=== PATIENT | female | born 1970 | race Caucasian/White ===

== ENCOUNTER → 2017-07-14 | Outpatient (CLI) | payer BC, SELFPAY | PROVIDERS: Visit Provider Internal Medicine Cardiovascular Disease | DX: G47.10 Hypersomnia, unspecified (principal); G47.09 Other insomnia; I10 Essential (primary) hypertension | CPT/HCPCS: 95806 ==

== ENCOUNTER → 2018-07-28 06:17 | Outpatient (CLI) | payer OTHER, SELFPAY ==
--- NOTE | 2018-07-28 06:23 | NM_ITS ---
History and Indications: Hypertension, family history, chest pain, shortness of breath and fatigue Procedure: Patient received a 0.4 mg of intravenous Lexiscan, resting heart rate was 64 bpm resting blood pressure 116/72. With Lexiscan maximum heart rate achieved was 100 bpm, which is less than 85% maximum predicted heart rate and a blood pressure was 97/57. With Lexiscan patient complained of shortness of breath, and chest discomfort Electrocardiogram: Resting electrocardiogram showed the sinus rhythm inferior infarct age indeterminate, nonspecific ST-T changes, with Lexiscan there is less than 1.[address] segment depression noted from the baseline EKG. The EKG portion of the Lexiscan Myoview is nondiagnostic. Cardiac stress and resting SPECT images: Cardiac stress and resting SPECT images were obtained using technetium 99 Myoview 31.3 mCi stress and 10.8 mCi at rest. Gated SPECT further analysis of segmental wall motion and calculation of the ejection fraction also done. Cardiac stress and resting SPECT images show uniform myocardial activity without segmental perfusion abnormality, computer derived ejection fraction is over 65% with no regional wall motion abnormality, right ventricle is normal size and contractility. Conclusion: 1. The EKG portion of the Lexiscan Myoview is nondiagnostic. 2. No scintigraphic evidence of reversible ischemia seen, computer derived ejection fraction is over 65% with no regional wall motion abnormality, right ventricle is normal size and contractility. 3. Normal Lexiscan Myoview study.
--- NOTE | 2018-07-28 09:03 | HMH.ITSHM ---
Current Home Medications as stated by this patient Rosa Olivarez or underwriting service representative. []asa prednisone losartan montelukast sumatriptan ondansetron famotidine cyclobenzaprine bisprolol hydroxychloroquine
== END ==
PROVIDERS: Visit Provider Internal Medicine
DX: R07.9 Chest pain, unspecified (principal); I10 Essential (primary) hypertension; I51.9 Heart disease, unspecified; G47.9 Sleep disorder, unspecified; R06.09 Other forms of dyspnea; R53.83 Other fatigue; R94.31 Abnormal electrocardiogram [ECG] [EKG]; Z99.89 Dependence on other enabling machines and devices
CPT/HCPCS: 78452; 93017; A9502; J2785

== ENCOUNTER → 2019-03-06 10:43 | Outpatient (CLI) | payer OTHER, SELFPAY ==
--- NOTE | 2019-03-06 10:33 | CA_ITS ---
APPROVED REPORT EXAM: Comprehensive 2D, Doppler, and color-flow Echocardiogram Coat Tailor: ONEIDA Ht: 5 ft 2 in Wt: 170lbs BSA: 1.78 BP: 136/85 mmHg Indications: SOB Left Ventricle Left atrium is normal size, left ventricle is normal size, there is no concentric left ventricular hypertrophy, visually estimated ejection fraction of 55% with no regional wall motion abnormality. Diastolic parameters are within normal range. Right Ventricle Right atrium and right ventricular normal size and contractility. Aortic Valve Aortic valve is minimally thickened and fibrosed. There is no aortic stenosis or aortic insufficiency. Mitral Valve Mitral valve leaflets are minimally thickened, there is no mitral stenosis, there is mild mitral regurgitation. Tricuspid Valve Cuspid valve is grossly normal, there is mild tricuspid regurgitation. Calculated right ventricular systolic pressure is 36 mmHg. Pulmonic Valve Pulmonic valve is poorly visualized. Great Vessels Aortic root is normal size. Pericardium No significant pericardial effusion noted. 2D Dimensions LVOT 1.70 cm (M/F) 1.5-2.5 M-Mode Dimensions RVDd 2.30 cm (0.9-2.6) LA Diam 3.50 cm (1.9-4.0) LVDd 5.00 cm (3.5-5.7) Ao Diam 3.10 cm (2.0-3.7) LVDs 3.20 cm (3.5-5.7) AV Cusp 2.30 cm (1.5-2.6) IVSd 1.00 cm (0.6-1.1) PWd 0.70 cm (0.6-1.1) EF (Teich) 65.30% FS 36.00% EDV (Teich) 118.00 mL ESV (Teich) 41.00 mL LV Diastology E/A Ratio 1.20 MED E' 6.53 (< 7 cm/sec) E'/MED E' Ratio 12.50 (>14) LAT E' 11.40 (<10 cm/sec) E/LAT E' Ratio 7.20 (>14) Aortic Valve AoV Peak Filiberto. 149.00 (50-130 cm/s) AO Peak GR. 9.00 mmHg Mitral Valve MV E Max Filiberto. 81.90 (40-130 cm/s) MV A Velocity 68.10 (40-130 cm/s) E/A Ratio 1.20 Pulmonary Valve MA End VMAX 84.80 cm/s PA Accel Time 176.00 (>120 msec) Tricuspid Valve TR P. Velocity 225.00 cm/s RAP Estimate 10.00 mmHg RVSP 30.00 mmHg Conclusion 1. Normal left ventricular size, preserved left ventricular systolic function, visually estimated ejection fraction of 55% with no regional wall motion abnormality. Diastolic parameters are within normal range. 2. Mild mitral and tricuspid regurgitation, calculated right ventricular systolic pressure is 36 mmHg. 3. No significant pericardial effusion noted. Electronically signed by : Christiano Garcia, 03/10/2019 14:39:57
== END ==
PROVIDERS: PCP Internal Medicine Cardiovascular Disease; Visit Provider Internal Medicine
DX: R06.02 Shortness of breath (principal)
CPT/HCPCS: 93306

== ENCOUNTER 2020-04-03 15:43 | Emergency (ER) | payer BC, SELFPAY ==
--- NOTE | 2020-04-03 15:43 | ECG_ITS ---
APPROVED REPORT Exam: Resting ECG HR:97 bpm ECG Measurements Heart Rate 97 AXES DE 154 P 51 QRSd 92 QRS 34 QT 356 T 22 QTc 452 <Conclusion> Normal sinus rhythm Nonspecific T wave abnormality Abnormal ECG Electronically signed by : Kwame Rosas, 04/07/2020 15:06:48
[2020-04-03 15:51] VITALS: BP 145/93; PULSE 95; RESP 18; TEMP 36.8; O2SAT 99; BMI 32.3
--- NOTE | 2020-04-03 15:58 | XR_ITS ---
PROCEDURE: XR CHEST 2V CLINICAL HISTORY: chest pain COMPARISON: No exams were available for comparison FINDINGS: The cardiomediastinal silhouette and pulmonary vascularity are within normal limits. The lungs are clear without infiltrates, suspicious nodules, or pleural effusions. No acute bony abnormalities. IMPRESSION: No acute findings. Dictated by: Jose Luis Mackenzie MD 04/03/2020 17:19 Jose Luis Mackenzie MD in [facility] 04/03/2020 17:19
--- NOTE | 2020-04-03 15:58 | PC.NURSE ---
notified rad of chest xray order, spoke with carlo
[2020-04-03 16:08] LABS: Basophils % 0.6 % (0.1-2.0); Eosinophils # 0.1 K/mm3 (0.0-0.4); Eosinophils % 0.9 % (0.1-12.0); Hematocrit 41.5 % (37.0-47.0); Hemoglobin 14.3 g/dL (12.2-16.2); Lymphocytes # 2.2 K/mm3 (0.7-4.5); Lymphocytes % 35.1 % (10-50); Mean Corpuscular HGB Conc 34.4 g/dL (31.8-35.4); Mean Corpuscular Hemoglobin 27.6 pg (27.0-31.2); Mean Corpuscular Volume 80.1 fl (81-99); Mean Platelet Volume 7.2 fl (7.4-10.4); Monocytes # 0.3 K/mm3 (0.1-1.0); Neutrophils # 3.7 K/mm3 (1.8-7.8); Neutrophils % 58.4 % (37.0-80.0); Platelet Count 289 K/mm3 (142-424); Red Blood Count 5.18 M/mm3 (4.20-5.40); Red Cell Distribution Width 14.7 % (11.5-17.5); White Blood Count 6.4 K/mm3 (4.8-10.8)
[2020-04-03 16:11] LABS: Chloride 100 mmol/L (98-107); Potassium 3.2 mmoL/L (3.5-5.1); Sodium 143 mmol/L (136-145)
[2020-04-03 16:14] LABS: Blood Urea Nitrogen 7 mg/dl (7-17); Creatinine Clearance Estimated 126 mL/min (50-200); Estimated Glomerular Filt Rate 90 ml/min (>60); GFR (African American) 109 ML/MIN (>60)
[2020-04-03 16:15] LABS: Anion Gap 17.2 mEq/L (5-15); Carbon Dioxide 29 mmol/L (22.0-30.0); Glucose 98 mg/dl (74-100)
[2020-04-03 16:21] LABS: D-Dimer 0.45 ug/mL (0.15-8.0)
[2020-04-03 16:47] LABS: Troponin I < 0.01 ng/ml (0.00-0.034)
--- NOTE | 2020-04-03 17:14 | HMH.EDGENADL ---
ED Disposition Clinical Impression: Non-cardiac chest pain Disposition: Home, Self-Care Condition on Discharge: Good Additional Instructions: You were seen on an emergency basis. It is very important that you follow up with your primary care provider and/or specialist as we discussed within 2 days. All labs and imaging were obtained and interpreted here to rule out life threatening emergencies, but your final results should be reviewed by your primary doctor at your follow up appointment. Please return to the emergency department if any of your symptoms worsen, or if they do not improve as we discussed. Referrals: Bakari Edwards MD [Primary Care Provider] - - Critical Care Critical Care Time: No Attestation: On 04/03/20, the high probability of a clinically significant, sudden or life threatening deterioration of the following system(s) required my full and direct attention, intervention and personal management. The time I documented below is in addition to time spent performing reported procedures but includes the following listed in this critical care notation. Medical Decision Making - Medical Records Medical records reviewed: Yes: I reviewed the patient's medical records. - Indra Inquiry Pt receiving controlled substance: No Vital Signs: 04/03/20 15:51 04/03/20 17:15 04/03/20 18:00 Temperature 98.2 F Temperature Source Oral Pulse Rate [Right Radial] 95 H 93 H 89 Respiratory Rate 18 18 Blood Pressure [Right Arm] 145/93 H 122/78 122/74 Blood Pressure Mean [Right Arm] 110 92 90 Blood Pressure Source [Right Arm] Automatic Cuff Automatic Cuff Blood Pressure Position [Right Arm] Sitting Sitting Sitting 02 Sat by Pulse Oximetry 99 98 100 Oxygen Delivery Method Room Air Room Air Room Air 04/03/20 18:38 04/03/20 19:08 Temperature Temperature Source Pulse Rate [Right Radial] 85 92 H Respiratory Rate 18 16 Blood Pressure [Right Arm] 146/104 H 118/81 Blood Pressure Mean [Right Arm] 118 93 Blood Pressure Source [Right Arm] Automatic Cuff Automatic Cuff Blood Pressure Position [Right Arm] Sitting 02 Sat by Pulse Oximetry 98 97 Oxygen Delivery Method - Lab Data Lab Results 04/03/20 16:00: WBC 6.4, RBC 5.18, Hgb 14.3, Hct 41.5, MCV 80.1 L, MCH 27.6, MCHC 34.4, RDW 14.7, Plt Count 289, MPV 7.2 L, Neut % (Auto) 58.4, Lymph % (Auto) 35.1, [place] % (Auto) 5.0, Eos % (Auto) 0.9, Baso % (Auto) 0.6, Neut # (Auto) 3.7, Lymph # (Auto) 2.2, [place] # (Auto) 0.3, Eos # (Auto) 0.1, Baso # (Auto) 0.0 04/03/20 16:00: Sodium 143, Potassium 3.2 L, Chloride 100, Carbon Dioxide 29, Anion Gap 17.2 H, BUN 7, Creatinine 0.70, Estimated Creat Clear 126, Estimated GFR 90, Est GFR ( Amer) 109, Glucose 98, Calcium 10.0, Troponin I < 0.01 04/03/20 16:00: D-Dimer 0.45 04/03/20 18:00: Troponin I < 0.01 Result diagrams: 04/03/20 16:00 04/03/20 16:00 Orders (Tests/Meds): ED MEDICATIONS Discontinued Medications Generic Name Dose Route Start Last Admin Trade Name Freq PRN Reason Stop Dose Admin Aspirin 324 mg 04/03/20 16:23 04/03/20 16:46 Aspirin 81mg Chewable Tablet PO 04/03/20 16:24 324 mg ONCE ONE Administration Potassium Chloride 40 meq 04/03/20 18:25 04/03/20 18:32 Klor-Con 20meq Tablet PO 04/03/20 18:26 40 meq ONCE ONE Administration ORDERS Category Date Time Status Troponin I Q3H Lab 04/03/20 22:00 Ordered Medical Decision Narrative: 49-year-old female presenting with chest pain. Nontoxic, afebrile, hemodynamically stable, oxygenating well on room air, atraumatic. Troponins are undetectable. CBC is nonactionable. Electrolytes showed a decreased potassium at 3.2 so was repleted here. Chest x-ray negative for acute disease. EKG nonischemic and without arrhythmia. D-Dimer within normal limits. Etiology uncertain but not cardiopulmonary. Will follow up with PCP. General Adult HPI - General Chief complaint: Chest Pain Stated complaint: chest ralph
[2020-04-03 17:15] VITALS: BP 122/78; PULSE 93; RESP 18; O2SAT 98
[2020-04-03 18:00] VITALS: BP 122/74; PULSE 89; O2SAT 100
[2020-04-03 18:38] VITALS: BP 146/104; PULSE 85; RESP 18; O2SAT 98
[2020-04-03 18:39] LABS: Troponin I < 0.01 ng/ml (0.00-0.034)
--- NOTE | 2020-04-03 19:04 | PC.NURSE ---
report received from kev bustillorn
[2020-04-03 19:08] VITALS: BP 118/81; PULSE 92; RESP 16; O2SAT 97
--- NOTE | 2020-04-03 19:21 | PC.NURSE ---
in to speak with patient and patient removed own cuff and monitor leads. wants to speak with re: her ekg. requested a copy.
[2020-04-03 19:22] VITALS: BP 120/76; PULSE 90; RESP 16; TEMP 36.8; O2SAT 98
== END 2020-04-03 19:40 | disposition home or self-care (01) ==
PROVIDERS: Emergency Provider Physician Assistant
DX: R07.9 Chest pain, unspecified (principal); I10 Essential (primary) hypertension; K21.9 Gastro-esophageal reflux disease without esophagitis; G43.709 Chronic migraine without aura, not intractable, without status migrainosus; Z90.49 Acquired absence of other specified parts of digestive tract; Z90.710 Acquired absence of both cervix and uterus; Z88.0 Allergy status to penicillin; Z88.2 Allergy status to sulfonamides; Z79.899 Other long term (current) drug therapy
CPT/HCPCS: 71046; 80048; 84484; 85025; 85378; 93005; 99284

== ENCOUNTER → 2022-04-17 10:55 | Outpatient (CLI) | payer BC, SELFPAY ==
[2022-04-17 11:57] LABS: Chloride 102 mmol/L (98-107); Potassium 4.1 mmoL/L (3.5-5.1); Sodium 141 mmol/L (136-145)
[2022-04-17 12:00] LABS: Blood Urea Nitrogen 11 mg/dl (7-17); Estimated Glomerular Filt Rate 76 ml/min (>60); GFR (African American) 92 ML/MIN (>60)
[2022-04-17 12:01] LABS: Anion Gap 14.1 mEq/L (5-15); Calcium 9.1 mg/dl (8.4-10.2); Carbon Dioxide 29 mmol/L (22.0-30.0); Glucose 84 mg/dl (74-100)
[2022-04-17 12:11] LABS: NT Pro Brain Natriuretic Pep. 45.9 pg/mL (0-125)
== END ==
PROVIDERS: PCP Family Medicine; Visit Provider Internal Medicine Cardiovascular Disease
DX: R06.09 Other forms of dyspnea (principal); I10 Essential (primary) hypertension; M25.471 Effusion, right ankle; M25.472 Effusion, left ankle
CPT/HCPCS: 36415; 80048; 83880